=== PATIENT | male | born 1950 | race Caucasian/White ===

== ENCOUNTER 2017-12-07 13:20 | Emergency (ER) | payer OTHER ==
--- NOTE | 2017-12-07 14:36 | RAD ---
Indication: Left rib pain. Dual energy PA views, multiple views of the left ribs are reviewed. There is no fracture or dislocation. No other bone or joint abnormality is noted. Lung hurtado appear clear. No pneumothorax is noted. IMPRESSION: No definite rib fractures is identified.
--- NOTE | 2017-12-07 15:29 | ED ---
Adult Trauma - HPI Summary HPI Summary: Patient presents to the ED with his . He states he sustained a fall on the ice 1 week ago and continues to have pain in the left side. He states it is difficult to take a big deep breath due to pain. The majority of his pain is discretely located just inferior to the left ribs with palpable lump. 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 It has been present ever since and has not created any problems until he fell directly onto it last week. Since then he has been complaining of worsening pain in the area, but no ecchymosis or other signs of trauma are visualized. He denies any hematemesis or melena. Appetite is good and continues to eat and drink okay. Denies any nausea, vomiting, constipation , diarrhea. Denies any fever, sweats, chills. 2 days after sustaining the fall he developed a pneumonia and has been on Levaquin for the past 5 days. He denies any serious health concerns. - History of Current Complaint Chief Complaint: EDChestWallPain Stated Complaint: FALL/FLANK PAIN/CHEST PAIN Time Seen by Provider: 12/07/17 13:48 Hx Obtained From: Patient Mechanism of Injury: Direct Blow Ambulatory at the Scene: Yes Loss of Consciousness: no loss of consciousness Force: Medium Restraints: None Onset/Duration: Started Weeks Ago - 7 days Onset of Pain: Minutes Onset Severity: Severe Current Severity: Moderate Pain Intensity: 1 Pain Scale Used: 0-10 Numeric Location: Back Character: Aching Aggravating Factor(s): Movement, Deep Breaths Alleviating Factor(s): Rest, Ice, Compression - Allergy/Home Medications Allergies/Adverse Reactions: Allergies Allergy/AdvReac Type Severity Reaction Status Date / Time No Known Allergies Allergy Verified 12/07/17 14:49 PMH/Surg Hx/FS Hx/Imm Hx Previously Healthy: Yes - Immunization History Hx Pertussis Vaccination: No Immunizations Up to Date: Yes Infectious Disease History: No Infectious Disease History: Denies: Traveled Outside the [place] in Last 30 Days - Social History Occupation: Unemployed Lives: With Family Alcohol Use: Occasionally Hx Substance Use: No Substance Use Type: Reports: None Hx Tobacco Use: Yes Smoking Status (MU): Former Smoker Review of Systems Constitutional: Negative Negative: Fever, Chills, Fatigue, Skin Diaphoresis Eyes: Negative Cardiovascular: Negative Positive: Cough Genitourinary: Negative Positive: no symptoms reported, see HPI Positive: Arthralgia Skin: Negative Psychological: Normal All Other Systems Reviewed And Are Negative: Yes Physical Exam Triage Information Reviewed: Yes Vital Signs On Initial Exam: Initial Vitals Temp Pulse Resp BP Pulse Ox 98.7 F 79 20 207/98 98 12/07/17 13:30 12/07/17 13:30 12/07/17 13:30 12/07/17 13:30 12/07/17 13:30 Vital Signs Reviewed: Yes Appearance: Positive: Well-Appearing, Well-Nourished Skin: Positive: Warm, Skin Color Reflects Adequate Perfusion, Other - Palpable lump to the left side of the abdomen just inferior to the left-sided ribs measuring 4 x 4 centimeters Diagnostics - Vital Signs Vital Signs Temp Pulse Resp BP Pulse Ox 12/07/17 13:30 98.7 F 79 20 207/98 98 - Laboratory Lab Statement: Any lab studies that have been ordered have been reviewed, and results considered in the medical decision making process. Re-Evaluation - Re-Evaluation First Eval Change: Unchanged Adult Trauma Course/Dx - Course Course Of Treatment: During the course of treatment, treatment options were discussed with the patient. Left rib series including chest x-ray were obtained and negative for any fractures, pneumothorax or pleural effusions. There is a palpable lump just inferior to the left-sided ribs measuring 4 x 4 centimeters. This is painful to the touch, is not discolored and no other signs of trauma are visualized. I have discussed a CT scan to further evaluate this abnormality. He declined CT as he is claustrophobic. I have advised an ultrasound. Ultrasound of the soft tissue and spleen obtained. REPORT AND IMPRESSION: 1. Approximate 1.6 x 0.6 x 3.5 cm teardrop shaped lesion grossly isoechoic with. subcutaneous fat within the skeletal muscle tissue plane with a thin band of overlying. skeletal muscle corresponding with a lucent lesion on chest radiograph is most consistent. with an intramuscular lipoma. Assuming that the pain is related to the patient's current. LEFT eighth and ninth posterior lateral rib fractures ultrasound for reassessment of the. probable benign lipoma in 3 months time is suggested given absence of prior exams to. document stability. If on clinical assessment the lesion is associated with pain on. palpation then surgical referral for clinical assessment prior to fine -needle aspiration. for histopathologic assessment would be suggested. 2. 9.0 x 11.0 x 4.2 cm spleen is without sonographic evidence for laceration. No. perisplenic hematoma evident. I discussed the results and findings with the patient. Pain is likely due to the 2 rib fractures visualized on CT scan. The lipoma is stable and he is to follow up with his PCP regarding these findings. He is also to follow up with PCP in one week to further evaluate the feeling of the rib fractures. He is given a prescription for tramadol and is advised a spirometer at home. He is given strict return precautions and is okay with discharge at this time. - Diagnoses Differential Diagnosis/HQI/PQRI: Positive: Fracture Provider Diagnoses: Rib fractures Discharge - Discharge Plan Condition: Stable Disposition: HOME Prescriptions: traMADol TAB* [Ultram*] 50 mg PO Q8H PRN #20 tab MDD 4 PRN Reason: Pain Patient Education Materials: Rib Fracture (ED) Referrals: No Primary Care Phys,NOPCP [Primary Care Provider] - Additional Instructions: Please follow up with PCP regarding rib fractures As discussed, your symptoms are likely related to the rib fractures, and not the small bulge to the L side Ibuprofen 600mg three times daily Intermittently, you may use the tramadol 50mg three times daily (max 4 times daily) Do not drive on this medication Moist heat to the area Rib fractures heal, but will take time - several weeks to months.
--- NOTE | 2017-12-07 15:46 | RAD ---
Indication: LEFT rib pain with enlarging lump at the LEFT lower rib area. Comparison: LEFT rib series of the same date. Technique: Ultrasound of chronic palpable lump at the LEFT lateral inferior chest wall with noted increased symptoms since fall. REPORT AND IMPRESSION: 1. Approximate 1.6 x 0.6 x 3.5 cm teardrop shaped lesion grossly isoechoic with subcutaneous fat within the skeletal muscle tissue plane with a thin band of overlying skeletal muscle corresponding with a lucent lesion on chest radiograph is most consistent with an intramuscular lipoma. Assuming that the pain is related to the patient's current LEFT eighth and ninth posterior lateral rib fractures ultrasound for reassessment of the probable benign lipoma in 3 months time is suggested given absence of prior exams to document stability. If on clinical assessment the lesion is associated with pain on palpation then surgical referral for clinical assessment prior to fine-needle aspiration for histopathologic assessment would be suggested. 2. 9.0 x 11.0 x 4.2 cm spleen is without sonographic evidence for laceration. No perisplenic hematoma evident.
[2017-12-07 16:33] VITALS: BP 180/81
== END 2017-12-07 16:42 | disposition home or self-care (01) ==
LOC: ED 13:20
DX: S22.42XA Multiple fractures of ribs, left side, initial encounter for closed fracture (principal); W00.0XXA Fall on same level due to ice and snow, initial encounter; Y92.9 Unspecified place or not applicable; M62.9 Disorder of muscle, unspecified; Z87.891 Personal history of nicotine dependence
CPT/HCPCS: 76705; 99282

== ENCOUNTER 2024-05-17 22:48 | Inpatient (IN) ==
[2024-05-17 23:17] LABS: ABS Basophils 0.1 10^3/uL (0.0-0.1); ABS Eosinophils 0.3 10^3/uL (0.0-0.5); ABS Monocytes 0.6 10^3/uL (0.0-1.1); ABS Neutrophils 6.2 10^3/uL (1.5-7.6); Eosinophil % 3.3 %; Hematocrit 39.7 % (38-53); Hemoglobin 13.5 g/dL (13.2-16.3); Lymphocyte % 22.1 %; Mean Corpuscular Hemoglobin 29.9 pg (27-33); Mean Corpuscular Volume 87.8 fL (80-97); Mean Platelet Volume 8.2 fL (7.5-11.2); Platelet Count 271 10^3/uL (150-450); Red Blood Count 4.52 10^6/uL (4.06-5.63); Red Cell Distribution Width 13.9 % (12-17); White Blood Count 9.2 10^3/uL (3.6-10.2)
[2024-05-17 23:22] LABS: INR 1.16 (0.83-1.13)
[2024-05-18 00:05] LABS: Albumin 4.3 g/dL (3.2-5.2); Albumin/Globulin Ratio 1.8 (1-3); Calcium 9.3 mg/dL (8.6-10.3); Creatinine, Serum 1.06 mg/dL (0.67-1.17); Globulin 2.4 g/dL (2-4); Potassium 4.2 mmol/L (3.5-5.0); Total Bilirubin 0.2 mg/dL (0.2-1.0); Total Protein 6.7 g/dL (6.4-8.9); eGFR CKD-EPI 73.6 (>60)
[2024-05-18 00:40] LABS: High Sensitivity Troponin 1 Hr 503 pg/mL (<20)
[2024-05-18] MEDS: Digoxin IV 0.5 MG/2 ML AMP (0.25 MG/ML) IV SLOW PU ONE (02:54)
[2024-05-18] MEDS ORDERED: Iohexol 350 (CONTRAST) 500 ML MDV IV ONE (02:59)
[2024-05-18] MEDS: Heparin DRIP 25,000 UNITS BAG 25,000 UNITS/250 ML BAG IV SCH (03:10)
[2024-05-18] MEDS: Heparin 5000 UNITS/ML 1 mL VIAL IV SCH (03:12)
[2024-05-18 04:27] LABS: TSH Ultra Thyroid Stim Horm 7.66 mcIU/mL (0.34-5.60)
[2024-05-18] MEDS ORDERED: Sulfur Hexaflouride MICROSPHR 25 MG VIAL IV ONE (04:32)
[2024-05-18 05:03] LABS: Creatinine, Serum 0.99 mg/dL (0.67-1.17); eGFR CKD-EPI 79.9 (>60)
[2024-05-18] MEDS: Metoprolol Tartrate 5 mg VIAL 5 ml VIAL (1 mg/ml) IV ONE (05:14)
[2024-05-18] MEDS ORDERED: Metoprolol Tartrate 5 mg VIAL 5 ml VIAL (1 mg/ml) IV PRN (10:15)
[2024-05-18 11:32] LABS: High Sens Troponin Baseline 474 pg/mL (<20)
[2024-05-18 12:34] LABS: LDL Cholesterol Direct 115 mg/dL
[2024-05-18 12:57] LABS: High Sensitivity Troponin 1 Hr 537 pg/mL (<20)
[2024-05-18] MEDS: Metoprolol Tartrate 5 mg VIAL 5 ml VIAL (1 mg/ml) IV PRN (14:44)
[2024-05-19 07:18] LABS: Calcium 9.7 mg/dL (8.6-10.3); Creatinine, Serum 1.06 mg/dL (0.67-1.17); Magnesium 1.9 mg/dL (1.9-2.7); Potassium 4.4 mmol/L (3.5-5.0); eGFR CKD-EPI 73.6 (>60)
[2024-05-19] MEDS: Aspirin EC 81 mg TAB.EC (enteric coated) PO SCH (07:46)
[2024-05-20 06:53] LABS: ABS Basophils 0.1 10^3/uL (0.0-0.1); ABS Eosinophils 0.2 10^3/uL (0.0-0.5); ABS Lymphocytes 1.7 10^3/uL (1.0-4.8); ABS Monocytes 0.6 10^3/uL (0.0-1.1); ABS Neutrophils 6.4 10^3/uL (1.5-7.6); Eosinophil % 2.2 %; Hematocrit 41.5 % (38-53); Hemoglobin 14.3 g/dL (13.2-16.3); Lymphocyte % 18.9 %; Mean Corpuscular Hemoglobin 30.3 pg (27-33); Mean Corpuscular Hgb Conc 34.4 g/dL (31-36); Mean Corpuscular Volume 88.2 fL (80-97); Mean Platelet Volume 8.5 fL (7.5-11.2); Nucleated Red Blood Cells % 0.1 %/100WBC (0.0-0.8); Platelet Count 283 10^3/uL (150-450); Red Blood Count 4.71 10^6/uL (4.06-5.63); Red Cell Distribution Width 14.1 % (12-17)
[2024-05-20] MEDS ORDERED: Phenylephrine 40 mcg/mL 10mL (400mcg) SYRINGE ONE (08:07)
[2024-05-20] MEDS ORDERED: Flumazenil 0.5 mg/5 ml 0.1 MG/ML 5 ml VIAL ONE (08:12)
[2024-05-20] MEDS ORDERED: Naloxone 0.4 mg VIAL 0.4 mg/ml 1 ml VIAL ONE (08:12)
[2024-05-20] MEDS ORDERED: fentaNYL 100 mcg/2 ml 50 MCG/ML VIAL ONE (08:12)
[2024-05-20] MEDS ORDERED: Midazolam 5 mg/5 ml VIAL 1 mg/ml 5 ml VIAL (5 mg) ONE (08:13)
[2024-05-20 08:26] LABS: Calcium 9.5 mg/dL (8.6-10.3); Creatinine, Serum 1.25 mg/dL (0.67-1.17); Potassium 4.4 mmol/L (3.5-5.0); eGFR CKD-EPI 60.4 (>60)
[2024-05-20] MEDS: NS 0.9% 1000 ml BAG 1,000 ML IV ONE (09:04)
[2024-05-20] MEDS: Midazolam 10 mg/10 ml VIAL 1 mg/ml 10 ml VIAL (10 mg) IV SLOW PU ONE (09:05)
[2024-05-20] MEDS: fentaNYL 100 mcg/2 ml 50 MCG/ML VIAL IV SLOW PU ONE (09:05)
[2024-05-20] MEDS ORDERED: Amiodarone 150 mg IVPREMIX 150 MG/100 ML BAG IV ONE (09:20)
[2024-05-20] MEDS: Amiodarone 150 mg IVPREMIX 150 MG/100 ML BAG IV ONE (09:24)
[2024-05-20 14:05] VITALS: BP 138/84
== END 2024-05-20 16:51 | disposition home or self-care (01) | DRG 201 ==
LOC: ED 22:48 → EDHOLD 05-18 04:17 → SUATTDRO 05-18 04:17 → MEDTELE 05-18 07:27
PROVIDERS: ADMIT Internal Medicine; ATTEND Internal Medicine